=== PATIENT | female | born 1955 | race Caucasian/White ===

== ENCOUNTER 2016-12-30 20:44 | Emergency (ER) | payer MEDICARE, OTHER ==
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
[~2016-12-30 20:44] MED LIST: ADDERALL; ADDERALL20 MG; ALBUTEROL17 GM INH; ALLEGRA PO; ALPRAZOLAM; ALPRAZOLAM PO; BLOOD PRESSURE; CYMBALTA PO; FLEXERIL10 M1 PO; FLONASE 0.05% N16 G1; IBUPROFEN800 MG PO; LEXAPRO; LIPITOR80 MG; LORTAB 10/500 T1 TAB PO; NASONEX17 GM; NO MEDICATIONS; Norco; PERCOCET 10/31 UDTA1; SINGULAIR4 MG; SOMA PO; XANAX2 MG; ZANTAC
== END 2016-12-30 22:09 | disposition home or self-care (01) ==
LOC: SED 20:44
DX: S09.90XA Unspecified injury of head, initial encounter (principal); T71.9XXA Asphyxiation due to unspecified cause, initial encounter; F17.200 Nicotine dependence, unspecified, uncomplicated; X58.XXXA Exposure to other specified factors, initial encounter; Y92.009 Unspecified place in unspecified non-institutional (private) residence as the place of occurrence of the external cause
CPT/HCPCS: 70450; 72125; 99284

== ENCOUNTER 2017-04-02 22:51 | Emergency (ER) | payer MEDICARE, OTHER ==
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
== END 2017-04-03 01:52 | disposition home or self-care (01) ==
LOC: SED 22:51
DX: S09.90XA Unspecified injury of head, initial encounter (principal); S16.1XXA Strain of muscle, fascia and tendon at neck level, initial encounter; F17.210 Nicotine dependence, cigarettes, uncomplicated; Y04.0XXA Assault by unarmed brawl or fight, initial encounter; Y92.039 Unspecified place in apartment as the place of occurrence of the external cause
CPT/HCPCS: 70450; 72040; 99284

== ENCOUNTER → 2017-04-03 | Outpatient (CLI) | payer MEDICARE, OTHER ==
--- NOTE | ~2017-04-03 | CR151 ---
[facility] A Service of [facility] RADIOLOGY TEXT RESULTS PATIENT: LORRIE FRANCO LOCATION: [facility] : 53 UNIT #: [id number] AGE: [address]: Ladan Wang SEX: F ORDER DR: [id number] [address] [address] [id number] O MR#: [id number] Acc #: [id number] NAME: LORRIE FRANCO : 1955 SEX: F STUDY DATE/TIME: 04/03/2017 8:12 UNIT: [facility] ROOM: STUDY DESCRIPTION: CR Hip Min 2 Views Rt Attending Physician: Ladan Wang A.P.R.N. Ordering Physician: Ladan Wang A.P.R.N. Primary Care Physician: Alva Strauss Cj MEDICAL IMAGING REPORT This report is preliminary unless electronic signature is present. EXAM AP pelvis with frog view of the right hip, 04/03/2017. HISTORY Chronic bilateral hip pain. No known injury. Patient states hip pain for years. COMPARISON None. FINDINGS There are signs of old left ischial avulsion with heterotopic ossification adjacent to the left ischium. Calcific atherosclerotic changes are demonstrated within the right upper thigh. Hip joint spaces appear well maintained without significant osteoarthritic change. Benign-appearing bone island is seen in the right superior acetabulum and within the left femoral neck. Suspected facet arthropathy at L5-S1. No sacroiliac joint or pubic symphysis diastasis is seen. IMPRESSION 1. No acute abnormality of the pelvis or right hip. 2. Bilateral hip joint spaces appear well maintained. 3. Features of old left ischium avulsion. 4. Lower lumbar facet arthropathy. Dictated by... Puja Lee M.D. THIS IS AN ELECTRONICALLY VERIFIED REPORT Puja Lee M.D. at 04/04/2017 10:39 AM RYNE/dawood [facility] A Service [facility] RADIOLOGY TEXT RESULTS PATIENT: LORRIE FRANCO LOCATION: [facility] : 51 UNIT #: [id number] AGE: [address]: Ladan Wang SEX: F ORDER DR: TD: 04/03/2017 18:39 JOB #: [id number] MEDICAL IMAGING REPORT Page 1 of 1
--- NOTE | ~2017-04-03 | CR150 ---
[facility] A Service [facility] RADIOLOGY TEXT RESULTS PATIENT: LORRIE FRANCO LOCATION: [facility] : 53 UNIT #: [id number] AGE: [address]: Ladan Wang SEX: F ORDER DR: [id number] [address] [address] [id number] O MR#: [id number] Acc #: [id number] NAME: LORRIE FRANCO : 1955 SEX: F STUDY DATE/TIME: 04/03/2017 8:12 UNIT: [facility] ROOM: STUDY DESCRIPTION: CR Hip Min 2 Views Lt Attending Physician: Ladan Wang A.P.R.N. Ordering Physician: Ladan Wang A.P.R.N. Primary Care Physician: Alva Strauss Cj MEDICAL IMAGING REPORT This report is preliminary unless electronic signature is present. EXAM AP pelvis with frog view of the left hip (2 images), 04/03/2017. HISTORY 62-year-old female with bilateral hip pain for years. No known injury. COMPARISON None. FINDINGS No pelvic fracture, hip fracture or hip dislocation is seen. There is chronic-appearing heterotopic ossification adjacent to the left ischium, suggesting sequelae of old ischial avulsion. Calcific atherosclerotic changes are seen within the right upper thigh. Facet arthropathy is thought to be present at L5-S1. No sacroiliac joint or pubic symphysis diastasis is seen. Benign-appearing bone island projects over the left femoral neck region. Hip joint spaces appear preserved without significant osteoarthritic change. IMPRESSION 1. Features of old left ischial avulsion with heterotopic ossification in the adjacent soft tissues. 2. Normal appearance of the hips. 3. Suspected facet arthropathy at L5-S1. Dictated by... Puja Lee M.D. THIS IS AN ELECTRONICALLY VERIFIED REPORT [facility] A Service [facility] RADIOLOGY TEXT RESULTS PATIENT: LORRIE FRANCO LOCATION: [facility] : 53 UNIT #: [id number] AGE: [address]: Ladan Wang SEX: F ORDER DR: Puja Lee M.D. at 04/04/2017 10:39 AM HERLINDA/dawood TD: 04/03/2017 18:31 JOB #: [id number] MEDICAL IMAGING REPORT Page 1 of 1
== END | disposition home or self-care (01) ==
LOC: SRAD 04-02 23:17
DX: M25.551 Pain in right hip (principal); M25.552 Pain in left hip; R93.7 Abnormal findings on diagnostic imaging of other parts of musculoskeletal system; M46.96 Unspecified inflammatory spondylopathy, lumbar region
CPT/HCPCS: 73502